=== PATIENT | male | born 1965 | race Caucasian/White ===

== ENCOUNTER 2019-04-17 09:37 | Emergency (ER) | payer OTHER ==
[~2019-04-17] VITALS: Ht 172.7 cm; Wt 102.5 kg
[2019-04-17 09:41] VITALS: BP 147/92
--- NOTE | 2019-04-17 09:46 | NUR ---
PT AMBULATED TO BED 04
--- NOTE | 2019-04-17 09:55 | NUR ---
STATES "I TWISTED MY KNEE LAST NIGHT". PT IS AMBULATORY.PT AWAKE , ALERT ,AFIBRILE AMBULATORY WITH STEADY GAIT .PAIN ON FLEXION OF RT KNEE. MEDS TAKEN IN AM PAIN WAS RELIEVE A BIT .CAN DO ROM OF RT KNEE WITH PAIN. HX- DENIES
--- NOTE | 2019-04-17 10:20 | NUR ---
xray at bedside.
--- NOTE | 2019-04-17 11:41 | NUR ---
DR DUARTE AT BEDSIDE REEVALUATING PT
[2019-04-17 12:06] VITALS: BP 145/88
--- NOTE | 2019-04-17 12:07 | NUR ---
Patient discharged with v/s stable. Written and verbal after care instructions given and explained. Patient verbalized understanding. Ambulatory with steady gait. All questions addressed prior to discharge. Advised to follow up with PMD.
== END 2019-04-17 12:07 | disposition home or self-care (01) ==
LOC: MED 09:37
DX: M25.561 Pain in right knee (principal)
CPT/HCPCS: 73562; 99283; Q0092